=== PATIENT | female | born 1945 | race Caucasian/White ===

== ENCOUNTER 2018-04-12 12:26 | Emergency (ER) | payer MEDICARE, OTHER, SELFPAY ==
[2018-04-12] VITALS (41 sets, daily range): BP systolic 113–155; BP diastolic 28–118; PULSE 59–79; RESP 10–22; TEMP 36.4–36.8; O2SAT 94–100
[2018-04-12] MEDS: Dextrose 50%-Water 25 GM/50 ML SYR (12:33)
[2018-04-12] MEDS: Dextrose 50%-Water 25 GM/50 ML SYR IVP (12:40)
--- NOTE | 2018-04-12 12:42 | DI.RPTCT_ITS ---
SYMPTOMS/DIAGNOSIS: UNRESPONSIVE, HYPOGLYCEMIA, ? ACUTE DISEASE/MASS/CVA CRANIAL CT: A noncontrast enhanced examination was performed. Mild atrophic changes consistent with age are demonstrated. Ill-defined radiolucencies in the frontoparietal white matter bilaterally would be consistent with small vessel disease. There is no evidence of an intra or extra-axial hemorrhage. The taylor/ white matter differentiation is maintained. There is nothing to suggest an infarct. There is no skull fracture. Subtotal opacification of the left sphenoid sinus and mild inflammatory changes in the right sphenoid sinus are noted. The paranasal sinuses are otherwise unremarkable. There is no evidence of a mastoid effusion. SUMMARY: No evidence of an acute intracranial abnormality. There is evidence of atrophy and small vessel disease and note is made of sphenoid sinusitis.
--- NOTE | 2018-04-12 12:42 | DI.REPORT_ITS ---
SYMPTOMS/DIAGNOSIS: UNRESPONSIVE, HYPOGLYCEMIA, ? ACUTE DISEASE AP UPRIGHT AND LATERAL CHEST: An ill-defined density is projected adjacent to the right hilum on the frontal image and probably lies in the lingula. The lungs are otherwise clear. There is no pneumothorax. The heart is noted enlarged. SUMMARY: Findings would be consistent with an acute pneumonitis.
[2018-04-12 12:44] LABS: Abs Immature Grans 0.03 k/cumm (0.0-0.09); Absolute Basophil Count 0.03 k/cumm (0.0-0.2); Absolute Eosinophil Count 0.53 k/cumm (0.0-0.7); Absolute Lymphocyte Count 1.74 k/cumm (1.2-3.4); Absolute Monocyte Count 0.74 k/cumm (0.11-0.7); Absolute Neutrophil Count 4.42 k/cumm (1.2-6.7); Basophils % 0.4; Eosinophils % 7.1; HCT 38.1 % (36.0-46.0); HGB 12.4 g/dL (12.0-15.5); Immature Grans % 0.4; Lymphocytes % 23.2; Mean Corp. HGB Concentration 32.5 g/dL (32.0-36.0); Mean Corpuscular Hemoglobin 31.8 pg (27.0-33.0); Mean Corpuscular Volume 97.7 fL (80-95); Mean Platelet Volume 10.8 fL (8.0-11.0); Monocytes % 9.9; Platelet Count 182 x1000/uL (130-400); RBC Distribution Width 15.3 % (11.7-14.6); White Blood Cell Count 7.49 k/cumm (4.4-10.8)
--- NOTE | 2018-04-12 12:57 | ED.GENADUL_ITS ---
Disposition Clinical Impression: Hypoglycemia, UTI (urinary tract infection) Disposition: HOME Condition: Improving Instructions: Urinary Tract Infection in Women (ED), Diabetic Hypoglycemia (ED) Additional Instructions: Hold on taking your 20 units of insulin tonight and tomorrow morning. However, if your sugar is greater than 400 tomorrow morning, you may take your insulin. Be sure to eat regular meals daily to decrease your risk of hypoglycemia while taking her diabetic medications. Follow-up with Dr. Cordova in the office tomorrow at 2 PM. He will discuss your medications and any plan for changes and discuss management of your diabetes to decrease risk of hypoglycemia in the future. Return to the emergency department any worsening or new concerning symptoms. Prescriptions: Cephalexin [Keflex] 500 mg PO BID 5 Days cap Medical Decision Making - Lab Data Laboratory Tests 04/12/18 12:35 WBC 7.49 RBC 3.90 L Hgb 12.4 Hct 38.1 MCV 97.7 H MCH 31.8 MCHC 32.5 RDW 15.3 H Plt Count 182 MPV 10.8 Immature Gran % 0.4 Neutrophils % 59.0 Lymphocytes % 23.2 Monocytes % 9.9 Eosinophils % 7.1 Basophils % 0.4 Absolute Neutrophils 4.42 Absolute Lymphocytes 1.74 Absolute Monocytes 0.74 H Absolute Eosinophils 0.53 Absolute Basophils 0.03 - EKG Data -: EKG Interpreted by Me 04/12/18 1229: 84bpm. Sinus. No acute ST elevation or depression. - Radiology Data Radiology results: report reviewed, image reviewed - Medical Decision Making 1230 -- 73-year-old female with history of diabetes type 2 who presented as unresponsive out in the parking lot in a car. states she takes insulin twice daily but he is unsure of her other medications. Glucose on arrival 43. Heart rate 80s. Systolic blood pressure 140s. She was diaphoretic. Patient was given 2 AMP of D50 on arrival and became alert. states she takes insulin twice daily and that she did eat breakfast this morning. After patient awoke, she confirms she ate an apple further and crackers this morning and took 20 units of her insulin last night and 20 units of insulin this morning. She states her diet had not changed any way than usual. She also takes metformin twice daily. She denies any possible overdose of her medication. Patient takes a long list of oral medications but she does not know the name. 1300 -- Case discussed with patient's primary care doctor Dr. Cordova at [facility] [address] -if patient okay to go home today, will follow up with patient in the office at 2 PM tomorrow afternoon. Recommends to hold patient's insulin tonight and if sugar less than 200 tomorrow morning to hold as well. If her sugar is greater than 400, recommend to take insulin in the morning. 1350 -- discussed with radiologist -no sphenoid sinus changes but no acute findings. Chest x-ray notes a questionable lingular infiltrate and to correlate clinically. 1430 --labs reviewed. White blood cell count 7.49. Creatinine 1.39. Glucose 378. Magnesium 1.4. Urinalysis notes greater than 50 WBCs as well as small leukocyte esterase. As patient has no cough, sob, chest pain, hypoxia, normal white blood cell count, will hold on treating for pneumonia at this time. However, due to urinalysis, will treat for UTI. Will also give magnesium p.o. Will recheck glucose and give patient a tray of food and reassess glucose within another hour. 1500 --glucose 223. 1630 --recheck glucose 252. She feels good to go home. Will give dose of antibiotics for UTI. She denies any recent antibiotics or any history of allergies to antibiotics. Patient again instructed to follow-up with her scheduled appointment with her primary care doctor tomorrow at 2 PM. She is instructed to return with any concerns. Magnesium ordered in delay in error and not given prior to discharge. History of Present Illness - General Chief complaint: Diabetes Stated complaint: UNKNOWN Time Seen by Provider: 04/12/18 12:30 Source: EMS Mode of arrival: EMS Limitations: altered mental status - History of Present Illness Initial comments: Patient is a 73-year-old female with history of diabetes who presented as unresponsive in the parking lot. [facility] when on the drive back towards here he attempted to talk to patient and she became unresponsive. States she was breathing. Nurses state that in the parking lot, while attempting to get patient out of car she moaned when being lifted up. Patient arrived back to ED room unresponsive, diaphoretic and breathing with pulse. - Related Data Acetaminophen Ext. Rel. [Tylenol Extented Release] 1 tab PO Q4H 04/12/18 Aspirin [Aspirin EC] 81 mg PO DAILY 04/12/18 Atorvastatin Calcium 1 tab PO DAILY 04/12/18 Benazepril HCl 1 tab PO DAILY 04/12/18 Carvedilol [Coreg] 1 tab PO BID 04/12/18 Cephalexin [Keflex] 500 mg PO BID 5 Days cap 04/12/18 Gabapentin 1 cap PO BID 04/12/18 Gabapentin 1 tab PO HS 04/12/18 Glimepiride 4 mg PO BID 04/12/18 Hydrochlorothiazide 1 tab PO DAILY 04/12/18 Insulin NPH Human Isophane [Novolin N] 20 units SC BID 04/12/18 LORazepam [Ativan] 1 tab PO BID PRN 04/12/18 Metformin HCl 1 tab PO BID 04/12/18 Multivitamin [Multi-Vitamin Daily] 1 tab PO DAILY 04/12/18 Omeprazole 1 mg PO DAILY 04/12/18 Pioglitazone HCl 1 tab PO HS 04/12/18 Potassium Citrate [Potassium Citrate ER] 2 tab PO BID 04/12/18 Sennosides/Docusate Sodium [Senna-Docusate Sodium Tablet] 2 tab PO PRN PRN 04/12 Sertraline HCl 50 mg PO DAILY 04/12/18 Tramadol HCl 50 mg PO DAILY PRN 04/12/18 Review of Systems Limitations: ROS unobtainable due to patients medical condition Past Medical History - Past Medical History Medical history: diabetes, hyperlipidemia, hypertension Surgical history: other (Back surgery) - Social History Smoking status: never smoker Alcohol use: none Drug use: none General Exam - General Limitations: altered mental status General appearance: other (Unresponsive but breathing with a pulse) - Head Head exam: Present: atraumatic - Eye Eye exam: Present: PERRL - ENT ENT exam: Present: mucous membranes moist - Respiratory Respiratory exam: Present: normal lung sounds bilaterally. Absent: respiratory distress, wheezes, rales, rhonchi, stridor - Cardiovascular Cardiovascular Exam: Present: regular rate, normal rhythm. Absent: bradycardia , tachycardia - GI/Abdominal GI/Abdominal exam: Present: soft. Absent: distended, tenderness - Neurological Exam Neurological exam: Present: other (Unresponsive) - Skin Skin exam: Present: diaphoretic Course Vital Signs - 24 hr 04/12/18 12:33 Temperature 97.5 F L Pulse 79 Respiratory 20 Rate Blood Pressure 154/59 Pulse Oximetry 95
[2018-04-12 13:00] LABS: ALT 14 U/L (12-78); AST 11 U/L (15-37); Alkaline Phosphatase 86 U/L (46-116); BUN 32 mg/dL (7-18); Bilirubin, Total 0.3 mg/dL (0.2-1.0); CO2 25.7 mmol/L (21.0-32.0); CREATININE 1.39 mg/dL (0.55-1.02); Estimated GFR 37.27 (mL/min/1.73m2); Glucose 378 mg/dL (70-100); Magnesium 1.4 mg/dL (1.8-2.4); Total Protein 6.6 g/dL (6.4-8.2)
[2018-04-12] MEDS: DEXTROSE 5%-0.45% SALINE 1,000 ML 100 ML IV (13:00)
[2018-04-12 13:04] LABS: Anion Gap 7.3 mmol/L (3-11); Chloride 104 mmol/L (98-107); Sodium 137 mmol/L (136-145)
[2018-04-12 13:05] LABS: Troponin I < 0.02 ng/mL (0.00-0.06)
[2018-04-12 13:07] LABS: ALT 14 U/L (12-78); AST 12 U/L (15-37); Alkaline Phosphatase 86 U/L (46-116); Bilirubin, Direct 0.08 mg/dL (0.00-0.20); Bilirubin, Total 0.2 mg/dL (0.2-1.0); Lipase 47 U/L (73-393); Total Protein 6.6 g/dL (6.4-8.2)
[2018-04-12 14:06] LABS: Bilirubin Small (Negative); Blood Negative (Negative); Clarity Sl Cloudy; Glucose 250 mg/dL (Negative); Ketones Trace mg/dL (Negative); Leukocyte Esterase Small (Negative); Nitrite Negative (Negative); Specific Gravity 1.025 (1.005-1.025); Urobilinogen 0.2 EU/dL (Up TO 0.2); pH 5.5 (5-8)
[2018-04-12 14:18] LABS: Bacteria Many HPF (Negative); C & S Indicated? Yes; WBC >50 HPF (0-5)
--- NOTE | 2018-04-12 15:21 | NUR.NOTE ---
Nursing Note: Patient supplied with a diabetic diet meal.
[2018-04-12] MEDS: Cephalexin 500 MG CAP PO (16:40)
--- NOTE | 2018-04-17 15:59 | W.ED.FU ---
C&S reviewed patient on appropriate antibiotic.
--- NOTE | 2018-04-17 16:00 | ED.FU.B_ITS ---
C&S reviewed patient on appropriate antibiotic.
== END 2018-04-12 16:49 | disposition home or self-care (01) ==
PROVIDERS: Emergency Provider Physician Assistant
DX: E11.641 Type 2 diabetes mellitus with hypoglycemia with coma (principal); Z79.4 Long term (current) use of insulin; N39.0 Urinary tract infection, site not specified; E83.42 Hypomagnesemia; I10 Essential (primary) hypertension
CPT/HCPCS: 36415; 36416; 51701; 80053; 80076; 82962; 83690; 87077; 93005; 99285; 70450; 71046; 81003; 81015; 83735; 84484; 85025; 87086; 87186; 93010